=== PATIENT | male | born 1980 | race Caucasian/White ===

== ENCOUNTER 2018-02-25 22:42 | Emergency (ER) ==
[2018-02-25 22:57] VITALS: BP 148/89; TEMP 97.1; BMI 48.6
[2018-02-25] MEDS ORDERED: MORPHINE 2 MG/ML SYRINGE IM STA (23:01)
[2018-02-25] MEDS ORDERED: ZOFRAN 4 MG/2 ML IM STA (23:02)
[2018-02-25] MEDS ORDERED: TORADOL IM STA (23:02)
--- NOTE | 2018-02-25 23:29 | CT ---
EXAM: CT scan brain without contrast HISTORY: Headache COMPARISON: None. FINDINGS: Contiguous axial images obtained from the skull base to the convexities without contrast u tilizing 5-mm collimation. Sagittal and coronal reconstructions were imaged and reviewed. The ventr icles and CSF spaces are within normal limits. There are no acute intracranial findings. There is v isualized paranasal sinuses and mastoid air cells are clear. IMPRESSION: No acute intracranial findings
--- NOTE | 2018-02-26 00:11 | ED.PDOC ---
General ED Provider: Dr. ANA CLEMONS-ER Chief Complaint: Headache Stated Complaint: my head hurts on the right side Time Seen by Physician: 22:45 Mode of Arrival: Walk-In Information Source: Patient, Family Exam Limitations: No limitations Primary Care Provider: MATTI HERNDON Nursing and Triage Documentation Reviewed and Agree: No (he told me he was not hurting in RUQ) Reviewed sepsis parameters & appropriate labs ordered?: Yes System Inflammatory Response Syndrome: Not Applicable Sepsis Protocol: For patient's 13 years and over: Temp is 96.8 and below OR 101 and greater Pulse >90 BPM Resp >20/minute Acutely Altered Mental Status Are patient's symptoms suggestive of a new infection, such as: -Pneumonia -Skin, Soft Tissue -Endocarditis -UTI -Bone, Joint Infection -Implantable Device -Acute Abdominal Infection -Wound Infection -Meningitis -Blood Stream Catheter Infection -Unknown Neurological Complaint Exam - Headache Complaint/Exam Onset: Gradual Duration: several days Symptoms Are: Still present Timing: Constant Episodes Lasting: Days Worst Headache Ever: No Initial Severity: Mild Current Severity: Moderate Location: Right Character: Reports: Dull, Throbbing, Pressure, Typical headache Alleviating: Reports: None Associated Signs and Symptoms: Denies: Dizziness, Seizure, Nausea, Vomiting, Sinus pressure, Fever, Neck pain, Neck stiffness, Decreased LOC, Visual changes Related History: Reports: Similar episode Related Surgical History: Reports: None SAH Risk Factors: Reports: None Meningitis Risk Factors: Reports: None Temporal Arteritis Risk Factors: Reports: Normal Head CT Within Last 12 Months: No Fundoscopic Exam: Present: Normal Findings Papilledema Present: No Temporal Artery Tenderness: Present: None Sinus Tenderness: Present: None TMJ Tenderness: Present: None Meningeal Signs Positive: No Pain on Passive Flexion-Positive Kernig's: No ROM Limited In: No Limitiations Focal Weakness: Present: None Focal Sensory Loss: Present: None Gait: Normal Nystagmus Present: No Gag Reflex Present: Yes [id number]: Normal Findings Romberg Test Positive: No Babinski Sign: Negative Right, Negative Left Heel to Toe Normal: Yes Differential Diagnoses: Migraine, Tension Headache, Other Review of Systems - Review Of Systems Constitutional: Reports: No symptoms Eyes: Reports: No symptoms Ears, Nose, Mouth, Throat: Reports: No symptoms Respiratory: Reports: No symptoms Cardiac: Reports: No symptoms GI: Reports: No symptoms : Reports: No symptoms Musculoskeletal: Reports: No symptoms Skin: Reports: No symptoms Neurological: Reports: Headache Endocrine: Reports: No symptoms Hematologic/Lymphatic: Reports: No symptoms All Other Systems: Reviewed and Negative Past Medical History - Past Medical History Previously Healthy: Yes Endocrine: Reports: Unknown Cardiovascular: Reports: Unknown Respiratory: Reports: Unknown Hematological: Reports: Unknown Gastrointestinal: Reports: Unknown Genitourinary: Reports: Unknown Neuro/Psych: Reports: Unknown Musculoskeletal: Reports: Unknown Cancer: Reports: Unknown - Surgical History General Surgical History: Reports: Unknown - Family History Family History: Reports: Unknown - Social History Smoking Status: Current every day smoker, Heavy tobacco smoker Hx Substance Use: No Alcohol Screening: None - Immunizations Tetanus Shot up to Date: (UNKNOWN) Physical Exam - Physical Exam Appearance: Well-appearing, No pain distress, Well-nourished Pain Distress: Moderate Eyes: SANDY, EOMI, Conjunctiva clear ENT: Ears normal, Nose normal, Oropharynx normal Neck: Supple Respiratory: Airway patent, Breath sounds clear, Breath sounds equal, Respirations nonlabored Cardiovascular: RRR, Pulses normal, No rub, No murmur GI/: Soft, Nontender, No masses, Bowel sounds normal, No Organomegaly Musculoskeletal: Normal strength, ROM intact, No edema, No calf tenderness Skin: Warm, Dry, Normal color Neurological: Sensation intact, Motor intact, Reflexes intact, Cranial nerves intact, Alert, Oriented Psychiatric: Affect appropriate, Mood appropriate Interpretation - Radiology Interpretation Radiology Interpretation By: Radiologist Radiology Results: Negative Exam Interpreted: CT Scan Re-Evaluation - Re-Evaluation Time of Re-Evaluation: 00:16 Status: Improved Vital Signs Stable: Yes Pain Level: 0 Appearance: NAD Lungs: Clear Skin: Warm and Dry Neuro: Alert and Oriented X3 CV: RRR Critical Care Note - Critical Care Note Total Time (mins): 0 Course - Course Orders, Labs, Meds: Lab Review 02/25/18 23:15 ESR 18 H Orders Category Date Time Status ESR Stat LAB 02/25/18 23:15 Completed Ketorolac Tromethamine [Toradol] MEDS 02/25/18 23:02 Discontinued 60 mg IM ONCE STA Morphine Sulfate [Morphine 2 mg/ml Syringe] MEDS 02/25/18 23:01 Discontinued 4 mg IM ONCE STA Ondansetron HCl/Pf [Zofran 4 mg/2 ml] MEDS 02/25/18 23:02 Discontinued 4 mg IM ONCE STA CT HEAD W/O CONTRAST Stat RADS 02/25/18 23:01 Completed Medications Discontinued Medications Generic Name Dose Route Start Last Admin Trade Name Chuckie PRN Reason Stop Dose Admin Ketorolac Tromethamine 60 mg 02/25/18 23:02 02/25/18 23:24 Toradol IM 02/25/18 23:03 60 mg ONCE STA Administration Morphine Sulfate 4 mg 02/25/18 23:01 02/25/18 23:23 Morphine 2 Mg/Ml Syringe IM 02/25/18 23:02 4 mg ONCE STA Administration Ondansetron HCl 4 mg 02/25/18 23:02 02/25/18 23:24 Zofran 4 Mg/2 Ml IM 02/25/18 23:03 4 mg ONCE STA Administration Vital Signs: Temp Pulse Resp BP Pulse Ox 02/25/18 22:42 97.1 F L 86 20 148/89 H 95 Departure - Departure Time of Disposition: 00:17 Disposition: HOME SELF-CARE Discharge Problem: Headache Instructions: Tension Headache (ED) Condition: Good Pt referred to PMD for follow-up: Yes IPMP verified?: No Additional Instructions: f/u wti pcp Allergies/Adverse Reactions: Allergies nystatin Adverse Reaction (Verified 02/25/18 22:54) Hives Home Medications: Ambulatory Orders Aspirin [Aspirin EC] 81 mg PO DAILY 02/25/18 Vit B12/Levomefolate/Vit B6/B2 [Cerefolin Tablet] 1 each PO DAILY 02/25/18 Disposition Discussed With: Patient, Family
== END 2018-02-26 00:32 | disposition home or self-care (01) ==
LOC: ED 22:42
DX: R51 Headache (principal); F17.210 Nicotine dependence, cigarettes, uncomplicated
CPT/HCPCS: 36415; 85651; 96372; 99283